=== PATIENT | male | born 1950 | race Caucasian/White ===

== ENCOUNTER → 2017-01-17 | Outpatient (CLI) | payer OTHER | LOC: MW.CHUR 09:06 | PROVIDERS: ATTEND Urology | DX: R97.20 Elevated prostate specific antigen [PSA] (principal); R35.0 Frequency of micturition | CPT/HCPCS: 36415; 84153 ==

== ENCOUNTER 2019-05-05 10:47 | Observation (INO) | payer OTHER, MEDICARE ==
[2019-05-05] MEDS ORDERED: Sodium Chloride 0.9% 10 ML Syringe FLUSH PRN (11:09)
[2019-05-05] MEDS ORDERED: Ketorolac 30 MG/ML SDV IVPUSH ONE (11:09)
[2019-05-05] MEDS ORDERED: Ondansetron 4 MG/2 ML SDV IVPUSH ONE (11:09)
[2019-05-05] MEDS ORDERED: Sodium Chloride 0.9% 2.5 ML Syringe FLUSH PRN (11:09)
[2019-05-05] MEDS ORDERED: Sodium Chloride 0.9% 1,000 ML IV ONE (11:09)
--- NOTE | 2019-05-05 11:14 | EDM.PDOC ---
ED HPI GENERAL MEDICAL PROBLEM - General Chief Complaint: Back Pain or Injury Stated Complaint: RIGHT LOW BACK PAIN Time Seen by Provider: 05/05/19 10:58 - History of Present Illness INITIAL COMMENTS - FREE TEXT/NARRATIVE: HISTORY AND PHYSICAL: History of present illness: The patient is a 68-year-old man with a history of hypertension and hypercholesterolemia who presents with complaints of right lower back pain that radiates to his right lower quadrant that started suddenly this morning. He says that he normal day yesterday without any systemic complaints and slept fine and woke up and got up and went to the bathroom without any hematuria dysuria and then went back to bed and the pain started. It is not in the midline back and is in the lower right back and radiates to the right lower abdomen. He has no testicular pain or swelling and the pain does not radiate down his leg or to the front of his thigh. He has no weakness numbness or tingling in his legs. He denies any recent trauma or new activities or strenuous lifting. He did not take anything or to coming here. He says that since the pain started he has had intractable nausea and vomiting and cannot keep any fluids down. He has not had diarrhea. He has no GI or history but does follow with Dr. Lugo for his PSA levels. He has never had any upper back pain in the flank area. He does not have any masses or swelling in his area that he is aware of or has noticed. The patient says that yesterday he was working outdoors and was very hot and he only drinks diet soda and no hydration fluids. He did tell nursing that his pain did improve for a short time after having urine output at home but then the pain returned so he came here for evaluation Please see below for more information that I have obtained in a subsequent review with patient Review of systems: As per history of present illness and below otherwise all systems reviewed and negative. Past medical history: As per history of present illness and as reviewed below otherwise noncontributory. Surgical history: As per history of present illness and as reviewed below otherwise noncontributory. Social history: No reported history of drug or alcohol abuse. Family history: As per history of present illness and as reviewed below otherwise noncontributory. Physical exam: General: Well-developed well-nourished man who is nontoxic and vital signs are noted by me. HEENT: Atraumatic, normocephalic, negative for conjunctival pallor or scleral icterus, mucous membranes moist, throat clear, neck supple, nontender, trachea midline. Lungs: Clear to auscultation, breath sounds equal bilaterally, chest nontender. Heart: S1S2, regular rate and rhythm no overt murmurs Abdomen: Soft, nondistended, nontender. Negative for masses or hepatosplenomegaly. Negative for costovertebral tenderness. On palpation I cannot elicit the pain exactly . There is just some overall discomfort with palpation of the right lower quadrant and there is no rebound or guarding. Pelvis: Stable nontender. Genitourinary: Deferred. Rectal: Deferred. Extremities: Atraumatic, negative for cords or calf pain. Neurovascular unremarkable. No pedal edema or leg asymmetry Neuro: Awake, alert, oriented. Cranial nerves II through XII unremarkable. Cerebellum unremarkable. Motor and sensory unremarkable throughout. Exam nonfocal. Tone is normal in the lower extremities and patellar reflexes are +2 over 4 bilaterally Back: There are no midline step-offs tenderness defects of the thoracic or lumbar spine no discrete CVA tenderness and on palpation of the right lumbar musculature I cannot reproduce the pain. Diagnostics: CBC CMP lipase UA urine culture CT scan of the abdomen and pelvis Therapeutics: IV fluids Zofran Toradol Flomax Protonix After patient gave a urine sample here he tells nursing that his pain is gone so he would like to hold off on the Toradol at this time. We will continue to monitor his symptoms and re-offer as appropriate. After the CT scan results were called to me by the tele-radiologist I did discuss with the patient his history over the last week or so with respect to GI complaints. He does, that he does drink a lot of diet Coke 5-6 a day but he does not drink any alcohol and he does not admit to any food intolerance. He does say that he has had "indigestion" for the last 1 week worse at nighttime and has been taking Tums before bed to try to prevent discomfort and heartburn while he is sleeping. He has never had an endoscopy or any peptic ulcer disease in the past. He is aware of the CT scan findings and of my concerns and will give him a dose of Flomax to assist with the passage of the small kidney stone on the right which is why he came into the ED but I need to discuss this case now with Dr. Kaminski with respect to the small foci of free air in the left upper quadrant. 1248: Case was discussed with Dr. Kaminski was aware of the case and will come and see the patient and agrees with the maintenance IV fluid with lactated Ringer's and a dose of Protonix. He said that we will treat this as peptic ulcer disease until proven otherwise and he does need to be watched in the hospital. He would like me to connect with Dr. Kevin to see if he wants to be the admitting doctor otherwise he will be the admitting doctor. 1251: Dr. Kevin does not feel like there is a medical problem here and it is more surgical so he says he will be available for consult as needed and would like Dr. Kaminski to be the admitting physician Impression: Small areas of incidental free air on CAT scan, I will peptic ulcer disease stable ;Right ureterolithiasis Definitive disposition and diagnosis as appropriate pending reevaluation and review of above. Right Lower Back Pain Score (Numeric/FACES): 8 - Related Data Allergies Allergy/AdvReac Type Severity Reaction Status Date / Time povidone-iodine Allergy Rash Verified 05/05/19 10:58 [From Betadine] soap [From Betadine] Allergy Rash Verified 05/05/19 10:58 Home Meds: Home Meds Lisinopril 20 mg PO BEDTIME 07/22/14 [History] Cholecalciferol (Vitamin D3) [Vitamin D3] 2,000 mg PO DAILY 05/05/19 [History] Finasteride [Propecia] 1 mg PO DAILY 05/05/19 [History] Meloxicam 7.5 mg PO BID 05/05/19 [History] Pravastatin [Pravachol] 20 mg PO DAILY 05/05/19 [History] predniSONE [Prednisone] 2.5 mg PO BID 05/05/19 [History] Past Medical History - Infectious Disease History Infectious Disease History: Reports: Chicken Pox, Measles, Mumps - Past Surgical History GI Surgical History: Reports: Hernia, Inguinal Social & Family History - Family History Family Medical History: Noncontributory - Tobacco Use Smoking Status *Q: Former Smoker Used Tobacco, but Quit: Yes Month/Year Tobacco Last Used: 2001 - Caffeine Use Caffeine Use: Reports: Soda - Recreational Drug Use Recreational Drug Use: No ED ROS GENERAL - Review of Systems Review Of Systems: ROS reveals no pertinent complaints other than HPI. ED EXAM, GENERAL - Physical Exam Exam: See Below (See dictation) Course - Vital Signs Last Recorded V/S: Last Vital Signs Temp 35.6 C 05/05/19 11:01 Pulse 67 05/05/19 11:01 Resp 18 05/05/19 11:01 BP 150/74 H 05/05/19 11:01 Pulse Ox 95 05/05/19 11:01 - Orders/Labs/Meds Orders: Active Orders 24 hr Category Date Time Status Abdomen Pelvis wo Cont [CT] Stat Exams 05/05/19 11:09 Taken CULTURE URINE [RM] Stat Lab 05/05/19 11:11 Received Lactated Ringers [Ringers, Lactated] 1,000 ml Med 05/05/19 12:45 Active IV ASDIRECTED Sodium Chloride 0.9% [Saline Flush] Med 05/05/19 11:09 Active 10 ml FLUSH ASDIRECTED PRN Sodium Chloride 0.9% [Saline Flush] Med 05/05/19 11:09 Active 2.5 ml FLUSH ASDIRECTED PRN Saline Lock Insert [OM.PC] Stat Oth 05/05/19 11:08 Ordered Medication Orders Lactated Ringer's (Ringers, Lactated) 1,000 mls @ 150 mls/hr IV ASDIRECTED PAVEL Last Admin: 05/05/19 12:47 Dose: 150 mls/hr Sodium Chloride (Saline Flush) 10 ml FLUSH ASDIRECTED PRN PRN Reason: Keep Vein Open Sodium Chloride (Saline Flush) 2.5 ml FLUSH ASDIRECTED PRN PRN Reason: Keep Vein Open Labs: Laboratory Tests 05/05/19 05/05/19 05/05/19 Range/Units 11:11 11:25 11:25 WBC 13.88 H (4.0-11.0) K/uL RBC 5.18 (4.50-5.90) M/uL Hgb 16.3 (13.0-17.0) g/dL Hct 48.7 (38.0-50.0) % MCV 94.0 (80.0-98.0) fL MCH 31.5 (27.0-32.0) pg MCHC 33.5 (31.0-37.0) g/dL RDW Std Deviation 47.8 (28.0-62.0) fl RDW Coeff of Darin 14 (11.0-15.0) % Plt Count 242 (150-400) K/uL MPV 9.90 (7.40-12.00) fL Neut % (Auto) 83.3 H (48.0-80.0) % Lymph % (Auto) 10.0 L (16.0-40.0) % [place] % (Auto) 6.2 (0.0-15.0) % Eos % (Auto) 0.2 (0.0-7.0) % Baso % (Auto) 0.3 (0.0-1.5) % Neut # (Auto) 11.6 H (1.4-5.7) K/uL Lymph # (Auto) 1.4 (0.6-2.4) K/uL [place] # (Auto) 0.9 H (0.0-0.8) K/uL Eos # (Auto) 0.0 (0.0-0.7) K/uL Baso # (Auto) 0.0 (0.0-0.1) K/uL Nucleated RBC % 0.0 /100WBC Nucleated RBCs # 0 K/uL Sodium 139 (136-148) mmol/L Potassium 3.9 (3.5-5.1) mmol/L Chloride 106 (98-107) mmol/L Carbon Dioxide 25.6 (21.0-32.0) mmol/L BUN 24 H (7.0-18.0) mg/dL Creatinine 1.2 (0.8-1.3) mg/dL Est Cr Clr Drug Dosing 59.73 mL/min Estimated GFR (MDRD) > 60.0 ml/min Glucose 175 H (74-106) mg/dL Calcium 8.9 (8.5-10.1) mg/dL Total Bilirubin 0.5 (0.2-1.0) mg/dL AST 21 (15-37) IU/L ALT 51 (14-63) IU/L Alkaline Phosphatase 48 (46-116) U/L Total Protein 6.8 (6.4-8.2) g/dL Albumin 3.6 (3.4-5.0) g/dL Globulin 3.2 (2.6-4.0) g/dL Albumin/Globulin Ratio 1.1 (0.9-1.6) Lipase 101 (73-393) U/L Urine Color YELLOW Urine Appearance SLT CLOUDY Urine pH 6.0 (5.0-8.0) Ur Specific [place] >= 1.030 (1.001-1.035) Urine Protein 30 H (NEGATIVE) mg/dL Urine Glucose (UA) NEGATIVE (NEGATIVE) mg/dL Urine Ketones NEGATIVE (NEGATIVE) mg/dL Urine Occult Blood LARGE H (NEGATIVE) Urine Nitrite NEGATIVE (NEGATIVE) Urine Bilirubin NEGATIVE (NEGATIVE) Urine Urobilinogen 0.2 (<2.0) EU/dL Ur Leukocyte Esterase NEGATIVE (NEGATIVE) Urine RBC 18-20 (0-2/HPF) Urine WBC 1-2 (0-5/HPF) Ur Epithelial Cells RARE (NONE-FEW) Urine Bacteria FEW (NEGATIVE) Urine Mucus MODERATE (NONE-MOD) Meds: Medications Generic Name Dose Route Start Last Admin Trade Name Sybil PRN Reason Stop Dose Admin Lactated Ringer's 1,000 mls @ 150 mls/hr 05/05/19 12:45 05/05/19 12:47 Ringers, Lactated IV 150 mls/hr ASDIRECTED PAVEL Administration Sodium Chloride 10 ml 05/05/19 11:09 Saline Flush FLUSH ASDIRECTED PRN Keep Vein Open Sodium Chloride 2.5 ml 05/05/19 11:09 Saline Flush FLUSH ASDIRECTED PRN Keep Vein Open Discontinued Medications Generic Name Dose Route Start Last Admin Trade Name Sybil PRN Reason Stop Dose Admin Sodium Chloride 1,000 mls @ 999 mls/hr 05/05/19 11:09 05/05/19 11:31 Normal Saline IV 05/05/19 12:09 999 mls/hr STAT ONE Administration Ketorolac Tromethamine 30 mg 05/05/19 11:09 Toradol IVPUSH 05/05/19 11:10 ONETIME ONE Ondansetron HCl 4 mg 05/05/19 11:09 Zofran IVPUSH 05/05/19 11:10 ONETIME ONE Pantoprazole Sodium 80 mg 05/05/19 12:48 Protonix Iv IVPUSH 05/05/19 12:49 .BOLUS ONE Tamsulosin HCl 0.4 mg 05/05/19 12:38 05/05/19 12:47 Flomax PO 05/05/19 12:39 0.4 mg ONETIME ONE Administration Departure - Departure Time of Disposition: 12:52 Disposition: Refer to Observation Condition: Good Clinical Impression: Pneumoperitoneum of unknown etiology, Ureterolithiasis - Discharge Information Referrals: PCP,None [Primary Care Provider] - Forms: ED Department Discharge - My Orders Last 24 Hours: My Active Orders 05/05/19 11:08 Saline Lock Insert [OM.PC] Stat 05/05/19 11:09 Abdomen Pelvis wo Cont [CT] Stat Sodium Chloride 0.9% [Saline Flush] 10 ml FLUSH ASDIRECTED PRN Sodium Chloride 0.9% [Saline Flush] 2.5 ml FLUSH ASDIRECTED PRN 05/05/19 11:11 CULTURE URINE [RM] Stat 05/05/19 12:45 Lactated Ringers [Ringers, Lactated] 1,000 ml IV ASDIRECTED - Assessment/Plan Last 24 Hours: My Active Orders 05/05/19 11:08 Saline Lock Insert [OM.PC] Stat 05/05/19 11:09 Abdomen Pelvis wo Cont [CT] Stat Sodium Chloride 0.9% [Saline Flush] 10 ml FLUSH ASDIRECTED PRN Sodium Chloride 0.9% [Saline Flush] 2.5 ml FLUSH ASDIRECTED PRN 05/05/19 11:11 CULTURE URINE [RM] Stat 05/05/19 12:45 Lactated Ringers [Ringers, Lactated] 1,000 ml IV ASDIRECTED
[2019-05-05 12:02] LABS: BLOOD UREA NITROGEN,BUN 24 mg/dL (7.0-18.0); CARBON DIOXIDE,CO2 25.6 mmol/L (21.0-32.0); CHLORIDE,CL 106 mmol/L (98-107); GLUCOSE RANDOM 175 mg/dL (74-106); LIPASE 101 U/L (73-393); POTASSIUM,K 3.9 mmol/L (3.5-5.1); SODIUM,NA 139 mmol/L (136-148)
[2019-05-05] MEDS ORDERED: Tamsulosin 0.4 MG Cap.ER PO ONE (12:38)
[2019-05-05] MEDS: Lactated Ringers 1,000 ML IV SCH ×4 (12:47→20:00)
[2019-05-05] MEDS ORDERED: Pantoprazole 40 MG Vial IVPUSH ONE (12:48)
--- NOTE | 2019-05-05 12:49 | CT ---
INDICATION: Right flank pain, right lower quadrant pain since this morning TECHNIQUE: CT abdomen and pelvis without contrast. COMPARISON: None available FINDINGS: The visualized portions of the lung bases are clear. There is moderate right hydronephrosis and hydroureter. There is a 0.3 cm stone within the proximal to mid right ureter, approximately 5.4 cm from the renal pelvis. Negative for left hydronephrosis. There is a punctate nonobstructing left renal stone. The bladder is minimally distended and unremarkable. There is a small left fat containing inguinal hernia. There are multiple enlarged gallstones within a nondistended gallbladder. Evaluation of the abdominal viscera is limited due to lack of IV contrast, however liver, spleen, pancreas and adrenal glands are unremarkable. There are no dilated loops of small bowel to suggest obstruction. There is scattered foci of intraperitoneal free air, predominantly within the left upper quadrant including foci along the greater curvature of the stomach. Additional small foci of free air is seen within the right upper quadrant. There is also larger focus of free air within the right lower quadrant, adjacent to the cecum. Scattered colonic diverticuli are seen within the rectosigmoid colon without adjacent inflammatory changes to suggest acute diverticulitis. The appendix is normal. There is scattered atherosclerotic calcification of the abdominal aorta and common iliacs bilaterally. Mild multilevel degenerative changes of the lower thoracic and lumbar spine. IMPRESSION: 1. Scattered foci of intraperitoneal free air in the upper abdomen and a larger focus in the right lower quadrant, adjacent to the cecum. No free fluid is visualized. Findings are concerning for bowel perforation in the absent of recent history of surgery. 2. Moderate right hydronephrosis with a 0.3 cm obstructing stone in the proximal mid right ureter. 3. Cholelithiasis. 4. Colonic diverticulosis without evidence of acute diverticulitis. Findings were discussed with Jen Ruvalcaba at 12:30 pm on 05/05/2019 Dictated by Berenice Iraheta MD @ 05/05/2019 12:47:16 PM Please note that all CT scans at this facility use dose modulation, iterative reconstruction, and/or weight-based dosing when appropriate to reduce radiation dose to as low as reasonably achievable. Dictated by: Berenice Iraheta MD @ 05/05/2019 12:48:06 (Electronically Signed)
[2019-05-05] MEDS ORDERED: Water For Injection, Sterile 20 ML ONE (12:51)
[2019-05-05] MEDS ORDERED: Morphine 10 MG/ML Syringe IVPUSH PRN (13:56)
[2019-05-05] MEDS ORDERED: Acetaminophen/HYDROcodone 325-5 MG Tab PO PRN (13:56)
[2019-05-05] MEDS ORDERED: Ondansetron 4 MG/2 ML SDV IVPUSH PRN (13:56)
[2019-05-05] MEDS ORDERED: Acetaminophen 325 MG Tab PO PRN (13:56)
--- NOTE | 2019-05-05 14:09 | PCM.HP ---
H&P History of Present Illness - General Date of Service: 05/05/19 Admit Problem/Dx: Admission Diagnosis/Problem Admission Diagnosis/Problem Abdominal pain, right ureteral stone, radiological small pneumoperitoneum Source of Information: Patient - History of Present Illness Initial Comments - Free Text/Narative: 68 y/o gentleman who presented to the ER today c/o right flank pain. Found to have leucocytosis with a WBC of 13K. CT scan showed a stone in the right mid- ureter. He was found to have several small foci of free air in the peritoneum although has no abdominal pain. Duration of Symptoms: Reports: Hour(s):, Intermittent Location: Reports: Abdomen Associated Symptoms: Reports: No Other Symptoms Right Lower Back Pain Score (Numeric/FACES): 8 - Related Data Allergies/Adverse Reactions: Allergies Allergy/AdvReac Type Severity Reaction Status Date / Time povidone-iodine Allergy Rash Verified 05/05/19 10:58 [From Betadine] soap [From Betadine] Allergy Rash Verified 05/05/19 10:58 Home Medications: Home Meds Lisinopril 20 mg PO BEDTIME 07/22/14 [History] Cholecalciferol (Vitamin D3) [Vitamin D3] 2,000 mg PO DAILY 05/05/19 [History] Finasteride [Propecia] 1 mg PO DAILY 05/05/19 [History] Meloxicam 7.5 mg PO BID 05/05/19 [History] Pravastatin [Pravachol] 20 mg PO DAILY 05/05/19 [History] predniSONE [Prednisone] 2.5 mg PO BID 05/05/19 [History] Past Medical History Musculoskeletal History: Reports: Other (See Below) (polymyositis) - Infectious Disease History Infectious Disease History: Reports: Chicken Pox, Measles, Mumps - Past Surgical History GI Surgical History: Reports: Hernia, Inguinal Social & Family History - Family History Family Medical History: Noncontributory - Tobacco Use Smoking Status *Q: Former Smoker Used Tobacco, but Quit: Yes Month/Year Tobacco Last Used: 2001 - Caffeine Use Caffeine Use: Reports: Soda - Recreational Drug Use Recreational Drug Use: No H&P Review of Systems - Review of Systems: Review Of Systems: See Below General: Denies: Fever, Chills, Malaise Cardiovascular: Denies: Chest Pain Gastrointestinal: Denies: Abdominal Pain, Constipation, Diarrhea, Decreased Appetite Genitourinary: Reports: Flank Pain (right). Denies: Dysuria, Frequency, Burning , Pain, Urgency Musculoskeletal: Reports: No Symptoms Skin: Denies: Cyanosis, Jaundice, Mottled Psychiatric: Denies: Confusion, Depression, Mood Lability, Anxiety Neurological: Reports: No Symptoms Hematologic/Lymphatic: Reports: No Symptoms Immunologic: Reports: Other (polymyositis) Exam - Exam Exam: See Below - Vital Signs Vital Signs: Last Vital Signs Temp 96.0 F 05/05/19 11:01 Pulse 67 05/05/19 11:01 Resp 18 05/05/19 11:01 BP 150/74 H 05/05/19 11:01 Pulse Ox 95 05/05/19 11:01 Weight: 188 lb 14.978 oz - Exam General: Alert, Oriented, Cooperative, Mild Distress HEENT: Conjunctiva Clear, Pupils Equal, Pupils Reactive. No: Scleral Icterus Neck: Supple Lungs: Clear to Auscultation Cardiovascular: Regular Rate, Regular Rhythm GI/Abdominal Exam: Normal Bowel Sounds, Soft, Non-Tender, No Distention. No: Guarding, Rigid, Rebound (Male) Exam: No Hernia Rectal (Males) Exam: Deferred Back Exam: Normal Inspection, Full Range of Motion, NT Extremities: Normal Inspection, Normal Range of Motion, Non-Tender, No Pedal Edema, Normal Capillary Refill Peripheral Pulses: 4+: Posterior Tibial (L), Posterior Tibial (R), Dorsalis Pedis (L), Dorsalis Pedis (R) Skin: Warm, Dry, Intact Neurological: Cranial Nerves Intact, Reflexes Equal Bilateral Psychiatric: Alert, Normal Affect, Normal Mood - Patient Data Lab Results Last 24 hrs: Laboratory Results - last 24 hr 05/05/19 05/05/19 05/05/19 Range/Units 11:11 11:25 11:25 WBC 13.88 H (4.0-11.0) K/uL RBC 5.18 (4.50-5.90) M/uL Hgb 16.3 (13.0-17.0) g/dL Hct 48.7 (38.0-50.0) % MCV 94.0 (80.0-98.0) fL MCH 31.5 (27.0-32.0) pg MCHC 33.5 (31.0-37.0) g/dL RDW Std Deviation 47.8 (28.0-62.0) fl RDW Coeff of Darin 14 (11.0-15.0) % Plt Count 242 (150-400) K/uL MPV 9.90 (7.40-12.00) fL Neut % (Auto) 83.3 H (48.0-80.0) % Lymph % (Auto) 10.0 L (16.0-40.0) % [place] % (Auto) 6.2 (0.0-15.0) % Eos % (Auto) 0.2 (0.0-7.0) % Baso % (Auto) 0.3 (0.0-1.5) % Neut # (Auto) 11.6 H (1.4-5.7) K/uL Lymph # (Auto) 1.4 (0.6-2.4) K/uL [place] # (Auto) 0.9 H (0.0-0.8) K/uL Eos # (Auto) 0.0 (0.0-0.7) K/uL Baso # (Auto) 0.0 (0.0-0.1) K/uL Nucleated RBC % 0.0 /100WBC Nucleated RBCs # 0 K/uL Sodium 139 (136-148) mmol/L Potassium 3.9 (3.5-5.1) mmol/L Chloride 106 (98-107) mmol/L Carbon Dioxide 25.6 (21.0-32.0) mmol/L BUN 24 H (7.0-18.0) mg/dL Creatinine 1.2 (0.8-1.3) mg/dL Est Cr Clr Drug Dosing 59.73 mL/min Estimated GFR (MDRD) > 60.0 ml/min Glucose 175 H (74-106) mg/dL Calcium 8.9 (8.5-10.1) mg/dL Total Bilirubin 0.5 (0.2-1.0) mg/dL AST 21 (15-37) IU/L ALT 51 (14-63) IU/L Alkaline Phosphatase 48 (46-116) U/L Total Protein 6.8 (6.4-8.2) g/dL Albumin 3.6 (3.4-5.0) g/dL Globulin 3.2 (2.6-4.0) g/dL Albumin/Globulin Ratio 1.1 (0.9-1.6) Lipase 101 (73-393) U/L Urine Color YELLOW Urine Appearance SLT CLOUDY Urine pH 6.0 (5.0-8.0) Ur Specific [place] >= 1.030 (1.001-1.035) Urine Protein 30 H (NEGATIVE) mg/dL Urine Glucose (UA) NEGATIVE (NEGATIVE) mg/dL Urine Ketones NEGATIVE (NEGATIVE) mg/dL Urine Occult Blood LARGE H (NEGATIVE) Urine Nitrite NEGATIVE (NEGATIVE) Urine Bilirubin NEGATIVE (NEGATIVE) Urine Urobilinogen 0.2 (<2.0) EU/dL Ur Leukocyte Esterase NEGATIVE (NEGATIVE) Urine RBC 18-20 (0-2/HPF) Urine WBC 1-2 (0-5/HPF) Ur Epithelial Cells RARE (NONE-FEW) Urine Bacteria FEW (NEGATIVE) Urine Mucus MODERATE (NONE-MOD) Result Diagrams: 05/05/19 11:25 05/05/19 11:25 - Problem List (1) Pneumoperitoneum of unknown etiology SNOMED Code(s): 25094004 ICD Code: K66.8 - OTHER SPECIFIED DISORDERS OF PERITONEUM Status: Acute Current Visit: Yes (2) Ureterolithiasis SNOMED Code(s): 01356320 ICD Code: N20.1 - CALCULUS OF URETER Status: Acute Current Visit: Yes Problem List Initiated/Reviewed/Updated: Yes Orders Last 24hrs: Active Orders 24 hr Category Date Time Status Patient Status [ADT] Routine ADT 05/05/19 13:55 Ordered Intake and Output [RC] QSHIFT Care 05/05/19 13:54 Ordered Strain Urine [RC] ASDIRECTED Care 05/05/19 14:00 Ordered Up ad Poppy [RC] ASDIRECTED Care 05/05/19 13:54 Ordered Vital Signs [RC] PER UNIT ROUTINE Care 05/05/19 13:54 Ordered Regular Diet [DIET] Diet 05/05/19 Dinner Ordered BMP [BASIC METABOLIC PANEL,BMP] [CHEM] AM Lab 05/06/19 05:11 Ordered CBC WITH AUTO DIFF [HEME] AM Lab 05/06/19 05:11 Ordered CULTURE URINE [RM] Stat Lab 05/05/19 11:11 Received Acetaminophen [Tylenol] Med 05/05/19 13:56 Ordered 325 mg PO Q4H PRN Acetaminophen/HYDROcodone [[place] 325-5 MG] Med 05/05/19 13:56 Ordered 1 - 2 tab PO Q4H PRN Lactated Ringers [Ringers, Lactated] 1,000 ml Med 05/05/19 12:45 Active IV ASDIRECTED Lactated Ringers [Ringers, Lactated] 1,000 ml Med 05/05/19 14:00 Ordered IV ASDIRECTED Morphine Med 05/05/19 13:56 Ordered See Dose Instructions IVPUSH Q1H PRN Ondansetron [Zofran] Med 05/05/19 13:56 Ordered 4 mg IVPUSH Q6H PRN Sodium Chloride 0.9% [Saline Flush] Med 05/05/19 11:09 Active 10 ml FLUSH ASDIRECTED PRN Sodium Chloride 0.9% [Saline Flush] Med 05/05/19 11:09 Active 2.5 ml FLUSH ASDIRECTED PRN cefOXitin [Mefoxin in Dextrose,Iso-Osm 1 GM/50 ML] 1 gm Med 05/05/19 14:00 Ordered Premix Bag 1 bag IV Q8H Saline Lock Insert [OM.PC] Stat Oth 05/05/19 11:08 Ordered Medication Orders Acetaminophen (Tylenol) 325 mg PO Q4H PRN PRN Reason: Fever Greater Than 101 Hydrocodone Bitart/Acetaminophen ([place] 325-5 Mg) 1 - 2 tab PO Q4H PRN PRN Reason: Pain (moderate 4-6) Lactated Ringer's (Ringers, Lactated) 1,000 mls @ 150 mls/hr IV ASDIRECTED [facility] Last Admin: 05/05/19 12:47 Dose: 150 mls/hr Lactated Ringer's (Ringers, Lactated) 1,000 mls @ 150 mls/hr IV ASDIRECTED [facility] Cefoxitin Sodium 1 gm/ Premix 50 mls @ 100 mls/hr IV Q8H [facility] Stop: 05/06/19 14:29 Morphine Sulfate (Morphine) 0 mg IVPUSH Q1H PRN PRN Reason: Pain (severe 7-10) Ondansetron HCl (Zofran) 4 mg IVPUSH Q6H PRN PRN Reason: Nausea/Vomiting Sodium Chloride (Saline Flush) 10 ml FLUSH ASDIRECTED PRN PRN Reason: Keep Vein Open Sodium Chloride (Saline Flush) 2.5 ml FLUSH ASDIRECTED PRN PRN Reason: Keep Vein Open Assessment/Plan Comment:: Patient will be admitted for observation secondary to radiologic pneumoperitoneum. Will start parenteral antibiotics during admission. Will start po diet as well and continue IV fluids. Will strain urine and keep him on flomax. Repeat labs in am.
[2019-05-05] MEDS: cefOXitin 1 GM in Premix Bag 1 BAG IV SCH ×2 (15:38→22:02)
[2019-05-06] MEDS: Lactated Ringers 1,000 ML IV SCH ×2 (03:10→09:08)
[2019-05-06] MEDS: cefOXitin 1 GM in Premix Bag 1 BAG IV SCH (05:19)
[2019-05-06 06:33] LABS: CARBON DIOXIDE,CO2 25.8 mmol/L (21.0-32.0); POTASSIUM,K 4.6 mmol/L (3.5-5.1)
[2019-05-06 08:13] VITALS: BP 128/60; PULSE 60
--- NOTE | 2019-05-06 09:36 | PCM.PN ---
- General Info Date of Service: 05/06/19 Admission Dx/Problem (Free Text): Pneumoperitoneum. Right ureteral stone. Functional Status: Reports: Pain Controlled, Tolerating Diet, Ambulating, Urinating - Review of Systems General: Denies: Fever, Weakness, Fatigue HEENT: Reports: No Symptoms Pulmonary: Reports: No Symptoms Cardiovascular: Denies: Chest Pain Gastrointestinal: Reports: Flatus. Denies: Abdominal Pain, Diarrhea, Nausea, Vomiting Genitourinary: Denies: Dysuria, Frequency, Burning, Pain, Urgency, Hematuria Musculoskeletal: Reports: No Symptoms Skin: Reports: No Symptoms Neurological: Reports: No Symptoms Psychiatric: Reports: No Symptoms - Patient Data Vitals - Most Recent: Last Vital Signs Temp 97.3 F 05/06/19 08:12 Pulse 60 05/06/19 08:12 Resp 16 05/06/19 08:12 BP 128/60 05/06/19 08:12 Pulse Ox 94 L 05/06/19 08:12 Weight - Most Recent: 189 lb 7 oz I&O - Last 24 Hours: Intake & Output 05/05/19 05/06/19 05/06/19 19:59 03:59 11:59 Intake Total 250 3034 1000 Output Total 400 1300 Balance -150 1734 1000 Lab Results Last 24 Hours: Laboratory Results - last 24 hr 05/05/19 05/05/19 05/05/19 Range/Units 11:11 11:25 11:25 WBC 13.88 H (4.0-11.0) K/uL RBC 5.18 (4.50-5.90) M/uL Hgb 16.3 (13.0-17.0) g/dL Hct 48.7 (38.0-50.0) % MCV 94.0 (80.0-98.0) fL MCH 31.5 (27.0-32.0) pg MCHC 33.5 (31.0-37.0) g/dL RDW Std Deviation 47.8 (28.0-62.0) fl RDW Coeff of Darin 14 (11.0-15.0) % Plt Count 242 (150-400) K/uL MPV 9.90 (7.40-12.00) fL Neut % (Auto) 83.3 H (48.0-80.0) % Lymph % (Auto) 10.0 L (16.0-40.0) % [place] % (Auto) 6.2 (0.0-15.0) % Eos % (Auto) 0.2 (0.0-7.0) % Baso % (Auto) 0.3 (0.0-1.5) % Neut # (Auto) 11.6 H (1.4-5.7) K/uL Lymph # (Auto) 1.4 (0.6-2.4) K/uL [place] # (Auto) 0.9 H (0.0-0.8) K/uL Eos # (Auto) 0.0 (0.0-0.7) K/uL Baso # (Auto) 0.0 (0.0-0.1) K/uL Nucleated RBC % 0.0 /100WBC Nucleated RBCs # 0 K/uL Sodium 139 (136-148) mmol/L Potassium 3.9 (3.5-5.1) mmol/L Chloride 106 (98-107) mmol/L Carbon Dioxide 25.6 (21.0-32.0) mmol/L BUN 24 H (7.0-18.0) mg/dL Creatinine 1.2 (0.8-1.3) mg/dL Est Cr Clr Drug Dosing 59.73 mL/min Estimated GFR (MDRD) > 60.0 ml/min Glucose 175 H (74-106) mg/dL Calcium 8.9 (8.5-10.1) mg/dL Total Bilirubin 0.5 (0.2-1.0) mg/dL AST 21 (15-37) IU/L ALT 51 (14-63) IU/L Alkaline Phosphatase 48 (46-116) U/L Total Protein 6.8 (6.4-8.2) g/dL Albumin 3.6 (3.4-5.0) g/dL Globulin 3.2 (2.6-4.0) g/dL Albumin/Globulin Ratio 1.1 (0.9-1.6) Lipase 101 (73-393) U/L Urine Color YELLOW Urine Appearance SLT CLOUDY Urine pH 6.0 (5.0-8.0) Ur Specific Somers >= 1.030 (1.001-1.035) Urine Protein 30 H (NEGATIVE) mg/dL Urine Glucose (UA) NEGATIVE (NEGATIVE) mg/dL Urine Ketones NEGATIVE (NEGATIVE) mg/dL Urine Occult Blood LARGE H (NEGATIVE) Urine Nitrite NEGATIVE (NEGATIVE) Urine Bilirubin NEGATIVE (NEGATIVE) Urine Urobilinogen 0.2 (<2.0) EU/dL Ur Leukocyte Esterase NEGATIVE (NEGATIVE) Urine RBC 18-20 (0-2/HPF) Urine WBC 1-2 (0-5/HPF) Ur Epithelial Cells RARE (NONE-FEW) Urine Bacteria FEW (NEGATIVE) Urine Mucus MODERATE (NONE-MOD) 05/06/19 05/06/19 Range/Units 06:01 06:01 WBC 8.02 (4.0-11.0) K/uL RBC 4.74 (4.50-5.90) M/uL Hgb 14.4 (13.0-17.0) g/dL Hct 45.1 (38.0-50.0) % MCV 95.1 (80.0-98.0) fL MCH 30.4 (27.0-32.0) pg MCHC 31.9 (31.0-37.0) g/dL RDW Std Deviation 49.0 (28.0-62.0) fl RDW Coeff of Darin 14 (11.0-15.0) % Plt Count 212 (150-400) K/uL MPV 9.50 (7.40-12.00) fL Neut % (Auto) 64.2 (48.0-80.0) % Lymph % (Auto) 24.3 (16.0-40.0) % [place] % (Auto) 8.4 (0.0-15.0) % Eos % (Auto) 2.2 (0.0-7.0) % Baso % (Auto) 0.9 (0.0-1.5) % Neut # (Auto) 5.2 (1.4-5.7) K/uL Lymph # (Auto) 2.0 (0.6-2.4) K/uL [place] # (Auto) 0.7 (0.0-0.8) K/uL Eos # (Auto) 0.2 (0.0-0.7) K/uL Baso # (Auto) 0.1 (0.0-0.1) K/uL Nucleated RBC % 0.0 /100WBC Nucleated RBCs # 0 K/uL Sodium 143 (136-148) mmol/L Potassium 4.6 (3.5-5.1) mmol/L Chloride 110 H (98-107) mmol/L Carbon Dioxide 25.8 (21.0-32.0) mmol/L BUN 21 H (7.0-18.0) mg/dL Creatinine 1.3 (0.8-1.3) mg/dL Est Cr Clr Drug Dosing 55.14 mL/min Estimated GFR (MDRD) 55.1 ml/min Glucose 102 (74-106) mg/dL Calcium 8.6 (8.5-10.1) mg/dL Total Bilirubin (0.2-1.0) mg/dL AST (15-37) IU/L ALT (14-63) IU/L Alkaline Phosphatase (46-116) U/L Total Protein (6.4-8.2) g/dL Albumin (3.4-5.0) g/dL Globulin (2.6-4.0) g/dL Albumin/Globulin Ratio (0.9-1.6) Lipase (73-393) U/L Urine Color Urine Appearance Urine pH (5.0-8.0) Ur Specific Somers (1.001-1.035) Urine Protein (NEGATIVE) mg/dL Urine Glucose (UA) (NEGATIVE) mg/dL Urine Ketones (NEGATIVE) mg/dL Urine Occult Blood (NEGATIVE) Urine Nitrite (NEGATIVE) Urine Bilirubin (NEGATIVE) Urine Urobilinogen (<2.0) EU/dL Ur Leukocyte Esterase (NEGATIVE) Urine RBC (0-2/HPF) Urine WBC (0-5/HPF) Ur Epithelial Cells (NONE-FEW) Urine Bacteria (NEGATIVE) Urine Mucus (NONE-MOD) Med Orders - Current: Current Medications Acetaminophen (Tylenol) 325 mg PO Q4H PRN PRN Reason: Fever Greater Than 101 Last Admin: 05/05/19 22:01 Dose: 325 mg Hydrocodone Bitart/Acetaminophen ([place] 325-5 Mg) 1 - 2 tab PO Q4H PRN PRN Reason: Pain (moderate 4-6) Lactated Ringer's (Ringers, Lactated) 1,000 mls @ 150 mls/hr IV ASDIRECTED PAVEL Last Admin: 05/06/19 09:08 Dose: 150 mls/hr Lactated Ringer's (Ringers, Lactated) 1,000 mls @ 150 mls/hr IV Q7H [facility] Last Admin: 05/06/19 03:10 Dose: 150 mls/hr Cefoxitin Sodium 1 gm/ Premix 50 mls @ 100 mls/hr IV Q8H [facility] Stop: 05/06/19 14:29 Last Admin: 05/06/19 05:19 Dose: 100 mls/hr Morphine Sulfate (Morphine) 0 mg IVPUSH Q1H PRN PRN Reason: Pain (severe 7-10) Ondansetron HCl (Zofran) 4 mg IVPUSH Q6H PRN PRN Reason: Nausea/Vomiting Sodium Chloride (Saline Flush) 10 ml FLUSH ASDIRECTED PRN PRN Reason: Keep Vein Open Sodium Chloride (Saline Flush) 2.5 ml FLUSH ASDIRECTED PRN PRN Reason: Keep Vein Open Discontinued Medications Sodium Chloride (Normal Saline) 1,000 mls @ 999 mls/hr IV STAT ONE Stop: 05/05/19 12:09 Last Admin: 05/05/19 11:31 Dose: 999 mls/hr Sterile Water (Sterile Water For Injection) Confirm Administered Dose 20 mls @ as directed .ROUTE .STK-MED ONE Stop: 05/05/19 12:52 Last Admin: 05/05/19 20:00 Dose: Not Given Ketorolac Tromethamine (Toradol) 30 mg IVPUSH ONETIME ONE Stop: 05/05/19 11:10 Last Admin: 05/05/19 12:50 Dose: Not Given Ondansetron HCl (Zofran) 4 mg IVPUSH ONETIME ONE Stop: 05/05/19 11:10 Last Admin: 05/05/19 12:50 Dose: Not Given Pantoprazole Sodium (Protonix Iv) 80 mg IVPUSH .BOLUS ONE Stop: 05/05/19 12:49 Last Admin: 05/05/19 12:55 Dose: 80 mg Tamsulosin HCl (Flomax) 0.4 mg PO ONETIME ONE Stop: 05/05/19 12:39 Last Admin: 05/05/19 12:47 Dose: 0.4 mg - Exam General: Alert, Oriented, Cooperative, No Acute Distress HEENT: Pupils Equal, Pupils Reactive. No: Scleral Icterus Neck: Supple Lungs: Clear to Auscultation, Normal Respiratory Effort Cardiovascular: Regular Rate, Regular Rhythm GI/Abdominal Exam: Normal Bowel Sounds, Soft, Non-Tender, No Distention. No: Guarding, Rigid, Rebound (Male) Exam: No Hernia Back Exam: Normal Inspection, Full Range of Motion. No: CVA Tenderness (R) Peripheral Pulses: 4+: Posterior Tibial (L), Posterior Tibial (R), Dorsalis Pedis (L), Dorsalis Pedis (R) Skin: Dry, Intact Neurological: No New Focal Deficit Psy/Mental Status: Alert, Normal Affect, Normal Mood - Problem List & Annotations (1) Pneumoperitoneum of unknown etiology SNOMED Code(s): 55550326 Code(s): K66.8 - OTHER SPECIFIED DISORDERS OF PERITONEUM Status: Acute Current Visit: Yes (2) Ureterolithiasis SNOMED Code(s): 40944649 Code(s): N20.1 - CALCULUS OF URETER Status: Acute Current Visit: Yes - Problem List Review Problem List Initiated/Reviewed/Updated: Yes - My Orders Last 24 Hours: My Active Orders 05/05/19 13:54 Intake and Output [RC] QSHIFT Up ad Poppy [RC] ASDIRECTED Vital Signs [RC] PER UNIT ROUTINE 05/05/19 13:55 Patient Status [ADT] Routine 05/05/19 13:56 Acetaminophen [Tylenol] 325 mg PO Q4H PRN Acetaminophen/HYDROcodone [[place] 325-5 MG] 1 - 2 tab PO Q4H PRN Morphine See Dose Instructions IVPUSH Q1H PRN Ondansetron [Zofran] 4 mg IVPUSH Q6H PRN 05/05/19 14:00 Strain Urine [RC] ASDIRECTED Lactated Ringers [Ringers, Lactated] 1,000 ml IV Q7H cefOXitin [Mefoxin in Dextrose,Iso-Osm 1 GM/50 ML] 1 gm Premix Bag 1 bag IV Q8H 05/05/19 Dinner Regular Diet [DIET] - Assessment Assessment:: Patient is doing very well. No abdominal pain. WBC has returned to normal with no left shift. Unsure of etiology of pneumoperitoneum but patient has no acute abdominal findings. - Plan Plan:: Patient will be discharged today with followup with me for cholelithiasis and Dr. Lugo for ureteral calculus. Flomax for 10 days and strain urine.
== END 2019-05-06 10:30 | disposition home or self-care (01) ==
LOC: MW.ED 10:47 → MW.MS 13:52
PROVIDERS: ADMIT Surgery; ATTEND Surgery
DX: K66.8 Other specified disorders of peritoneum (principal); N20.1 Calculus of ureter; I10 Essential (primary) hypertension; E78.00 Pure hypercholesterolemia, unspecified; Z88.3 Allergy status to other anti-infective agents; Z91.048 Other nonmedicinal substance allergy status; Z87.891 Personal history of nicotine dependence; Z79.52 Long term (current) use of systemic steroids; Z79.1 Long term (current) use of non-steroidal anti-inflammatories (NSAID); Z79.899 Other long term (current) drug therapy
CPT/HCPCS: 36415; 74176; 80048; 80053; 81001; 83690; 85025; 87086; 96361; 96374; 99284; A9270; C9113; J0694; J7040; J7120; 96365; 96375; 96376; G0378

== ENCOUNTER 2020-01-01 12:11 | Observation (INO) | payer BC, MEDICARE ==
[2020-01-01] MEDS ORDERED: Ondansetron 4 MG/2 ML SDV IVPUSH PRN (13:21)
[2020-01-01] MEDS ORDERED: Sodium Chloride 0.9% 2.5 ML Syringe FLUSH PRN (13:21)
[2020-01-01] MEDS ORDERED: Acetaminophen 325 MG Tab PO PRN (13:21)
--- NOTE | 2020-01-01 14:17 | PCM.HP.2 ---
H&P History of Present Illness - General Date of Service: 01/01/20 Admit Problem/Dx: GI bleed Source of Information: Patient History Limitations: Reports: No Limitations - History of Present Illness Initial Comments - Free Text/Narative: This 69 year old male with pmh of CAD with recent stenting in June 2019 on Effient and ASA, GERD, COPD, HTN, HLD, autoimmune polymyositis presented to the clinic today with concerns of shortness of breath and chest pressure when ambulating. Hgb was checked 12/26 and noted to be 9.6 and today recheck was 6.8. He had called his collet driller in [place] who recommended stopping Effient and continuing with ASA, and to stop ASA 5 days prior to EGD when he is set up to do this. He reports no black or blood BMs. Reports stools are brown in color. No nausea or vomiting, but reports gastritis and heartburn. Sometimes food helps with pain and sometimes it makes it worse. He takes Omeprazole at home nightly, which has helped. He previously was on Meloxicam and Prednisone. Continues on 2.5 mg of Prednisone BID. He also reports Carafate in the past, which caused his pain so this was stopped. In the clinic h/h noted to be 6.8/23.7. Iron 15, Na 144, K+ 4.0, BUN 29 and Cr 1.2. Admission for transfusion recommended. Dr Kaminski was notified of patient , recommended infusion, but would hold of on EGD/colonoscopy currently. - Related Data Allergies/Adverse Reactions: Allergies Allergy/AdvReac Type Severity Reaction Status Date / Time povidone-iodine Allergy Rash Verified 01/01/20 13:29 [From Betadine] soap [From Betadine] Allergy Rash Verified 01/01/20 13:29 Home Medications: Home Meds Cholecalciferol (Vitamin D3) [Vitamin D3] 2,000 mg PO DAILY 05/05/19 [History] predniSONE [Prednisone] 2.5 mg PO BID 05/05/19 [History] Alendronate Sodium 1 tab PO WEEKLY 01/01/20 [History] Aspirin [Adult Low Dose Aspirin EC] 81 mg PO 01/01/20 [History] Furosemide 40 mg PO DAILY 01/01/20 [History] Glycopyrrolate/Formoterol Fum [Bevespi Aerosphere Inhaler] 2 inh IH BID [History] Multivitamin [Multivitamins] 1 tab PO DAILY 01/01/20 [History] Omeprazole 20 mg PO BEDTIME 01/01/20 [History] Potassium Chloride [Klor-Con M20] 20 meq PO DAILY 01/01/20 [History] Tiotropium [Spiriva Handihaler] 1 inh IH DAILY 01/01/20 [History] atorvaSTATin [Lipitor] 20 mg PO BEDTIME 01/01/20 [History] lisinopriL [Lisinopril] 20 mg PO BEDTIME 01/01/20 [History] Past Medical History Cardiovascular History: Reports: Hypertension, SOB on Exertion, Stents ( June 2019). Denies: Heart Failure Respiratory History: Reports: None Genitourinary History: Reports: Renal Calculus Musculoskeletal History: Reports: Other (See Below) (auotimmune polymyositis) Neurological History: Denies: CVA, TIA Psychiatric History: Reports: None Endocrine/Metabolic History: Reports: None, Other (See Below). Denies: Diabetes , Type II Hematologic History: Reports: Iron Deficiency - Infectious Disease History Infectious Disease History: Reports: Chicken Pox, Measles, Mumps - Past Surgical History GI Surgical History: Reports: Hernia, Inguinal Social & Family History - Family History Family Medical History: Noncontributory - Tobacco Use Smoking Status *Q: Former Smoker Used Tobacco, but Quit: No - Caffeine Use Caffeine Use: Reports: None - Alcohol Use Alcohol Use History: No - Recreational Drug Use Recreational Drug Use: No H&P Review of Systems - Review of Systems: Review Of Systems: See Below General: Reports: Malaise, Fatigue. Denies: Fever, Chills HEENT: Reports: No Symptoms. Denies: Headaches, Visual Changes Pulmonary: Reports: Shortness of Breath Cardiovascular: Reports: Chest Pain (pressure with ambulation), Dyspnea on Exertion Gastrointestinal: Reports: No Symptoms. Denies: Abdominal Pain, Black Stool, Bloody Stool, Hematemesis, Hematochezia, Nausea, Vomiting Genitourinary: Reports: No Symptoms. Denies: Dysuria, Frequency, Burning Musculoskeletal: Reports: No Symptoms. Denies: Neck Pain, Shoulder Pain, Arm Pain Skin: Reports: No Symptoms Psychiatric: Reports: No Symptoms Neurological: Reports: No Symptoms Hematologic/Lymphatic: Reports: No Symptoms Exam - Exam Exam: See Below - Vital Signs Weight: 78.154 kg - Exam General: Alert, Oriented, Cooperative Neck: Supple, Trachea Midline Lungs: Clear to Auscultation, Normal Respiratory Effort Cardiovascular: Regular Rate, Regular Rhythm, Normal S1, Normal S2. No: Systolic Murmur GI/Abdominal Exam: Normal Bowel Sounds, Soft, Non-Tender Rectal (Males) Exam: Normal Exam, Normal Rectal Tone, Heme + Stool. No: Black Stool Back Exam: Normal Inspection, Full Range of Motion Extremities: Normal Inspection, Normal Range of Motion, Pedal Edema (+1 pitting edema BLE) Neuro Extensive - Mental Status: Alert, Oriented x3 Neuro Extensive - Motor, Sensory, Reflexes: CN II-XII Intact Psychiatric: Alert, Normal Affect, Normal Mood - Problem List (1) GI bleed SNOMED Code(s): 29094149 ICD Code: K92.2 - GASTROINTESTINAL HEMORRHAGE, UNSPECIFIED Status: Acute Current Visit: Yes (2) Symptomatic anemia SNOMED Code(s): 645718978 ICD Code: D64.9 - ANEMIA, UNSPECIFIED Status: Acute Current Visit: Yes (3) HTN (hypertension) SNOMED Code(s): 74443385 ICD Code: I10 - ESSENTIAL (PRIMARY) HYPERTENSION Status: Chronic Current Visit: Yes (4) HLD (hyperlipidemia) SNOMED Code(s): 61881165 ICD Code: E78.5 - HYPERLIPIDEMIA, UNSPECIFIED Status: Chronic Current Visit: Yes (5) CAD (coronary artery disease) SNOMED Code(s): 34539701 ICD Code: I25.10 - ATHSCL HEART DISEASE OF [place] CORONARY ARTERY W/O ANG PCTRS Status: Chronic Current Visit: Yes (6) History of coronary artery stent placement SNOMED Code(s): 886664606, 077849693 ICD Code: Z95.5 - PRESENCE OF CORONARY ANGIOPLASTY IMPLANT AND GRAFT Status : Chronic Current Visit: Yes Problem List Initiated/Reviewed/Updated: Yes Orders Last 24hrs: Active Orders 24 hr Category Date Time Status Antiembolic Devices [RC] PER UNIT ROUTINE Care 01/01/20 13:22 Active Intake and Output [RC] QSHIFT Care 01/01/20 13:22 Active Oxygen Therapy [RC] PRN Care 01/01/20 13:22 Active Up With Assistance [RC] ASDIRECTED Care 01/01/20 13:21 Active VTE/DVT Education [RC] PER UNIT ROUTINE Care 01/01/20 13:22 Active Vital Signs [RC] Q4H Care 01/01/20 13:22 Active Clear Liquid Diet [DIET] Diet 01/01/20 Lunch Active BASIC METABOLIC PANEL,BMP [CHEM] AM Lab 01/02/20 05:11 Ordered CBC WITH AUTO DIFF [HEME] AM Lab 01/02/20 05:11 Ordered RED BLOOD CELLS LP [BBK] Routine Lab 01/01/20 13:54 Received TYPE AND SCREEN [BBK] Routine Lab 01/01/20 13:54 Received Acetaminophen [Tylenol] Med 01/01/20 13:21 Active 650 mg PO Q4H PRN Ondansetron [Zofran] Med 01/01/20 13:21 Active 4 mg IVPUSH Q4H PRN Sodium Chloride 0.9% [Saline Flush] Med 01/01/20 13:21 Active 2.5 ml FLUSH ASDIRECTED PRN Saline Lock Insert [OM.PC] Routine Oth 01/01/20 13:21 Ordered Sequential Compression Device [OM.PC] Per Unit Routine Oth 01/01/20 13:22 Ordered Transfuse Red Blood Cells [COMM] Routine Oth 01/01/20 13:20 Ordered Medication Orders Acetaminophen (Tylenol) 650 mg PO Q4H PRN PRN Reason: Pain (Mild 1-3)/fever Ondansetron HCl (Zofran) 4 mg IVPUSH Q4H PRN PRN Reason: Nausea Sodium Chloride (Saline Flush) 2.5 ml FLUSH ASDIRECTED PRN PRN Reason: Keep Vein Open Assessment/Plan Comment:: This 69 year old male admitted with GI bleed, suspected chronic 1. GI bleeding, suspected to be chronic - Effient stopped per direction of [place]/Plowing. - Hold ASA for now - Heme positive stools - Transfuse 2 units PRBCs now. Lasix 20 mg IV in between units. Recheck hgb in am. - Consider outpatient EGD/colonoscopy. - Protonix 40 mg IV BID. - CL diet now. 2. HTN/CAD - Stable, continue Lisinopril. - HOLD ASA - Continue Statin. 3. COPD/emphysema - Continue Inhalers. 4. Autoimmune polymyositis - Hold Prednisone for now. VTE prophylaxis: SCDs Dispo: 1-2 days - Mortality Measure Prognosis:: Good
[2020-01-01] MEDS ORDERED: Furosemide 40 MG/4 ML VIAL IVPUSH ONE ×2 (14:24→19:15)
[2020-01-01] MEDS ORDERED: Alendronate 70 MG Tab PO SCH (14:30)
[2020-01-01] MEDS ORDERED: Iron Sucrose Complex 200 MG in Sodium Chloride 0.9% 100 ML IV ONE ×2 (14:45→15:15)
[2020-01-01] MEDS: Pantoprazole 40 MG in Sodium Chloride 0.9% 10 ML IV SCH (14:59)
[2020-01-01] MEDS ORDERED: Furosemide 20 MG/2 ML VIAL IVPUSH ONE (19:15)
[2020-01-01] MEDS ORDERED: atorvaSTATin 20 MG Tab PO SCH (21:00)
[2020-01-01] MEDS ORDERED: Lisinopril 10 MG Tab PO SCH (21:00)
[2020-01-01] MEDS ORDERED: predniSONE 5 MG Tab PO SCH (21:00)
[2020-01-01] MEDS: Bevespi Aerosphere Inhaler INH SCH (21:12)
[2020-01-02] MEDS: Pantoprazole 40 MG in Sodium Chloride 0.9% 10 ML IV SCH ×2 (02:01→13:59)
[2020-01-02] MEDS: Bevespi Aerosphere Inhaler INH SCH (05:41)
[2020-01-02 07:02] LABS: BLOOD UREA NITROGEN,BUN 20 mg/dL (7.0-18.0); CARBON DIOXIDE,CO2 27.1 mmol/L (21.0-32.0); CHLORIDE,CL 111 mmol/L (98-107); GLUCOSE RANDOM 91 mg/dL (74-106); SODIUM,NA 145 mmol/L (136-148)
[2020-01-02] MEDS ORDERED: Furosemide 40 MG Tab PO SCH (09:00)
[2020-01-02] MEDS ORDERED: SPIRIVA INH SCH (09:00)
[2020-01-02] MEDS ORDERED: Cholecalciferol (Vitamin D3) 10 MCG Tab PO SCH (09:00)
[2020-01-02] MEDS ORDERED: Multivitamin Tab PO SCH (09:00)
[2020-01-02] MEDS ORDERED: Iron Sucrose Complex 200 MG in Sodium Chloride 0.9% 100 ML IV ONE ×2 (11:45→15:00)
[2020-01-02 14:49] VITALS: BP 130/58; PULSE 64
--- NOTE | 2020-01-02 15:28 | PCM.DCSUM1 ---
Discharge Summary - Hospital Course Brief History: This 69 year old male with pmh of CAD with recent stenting in June 2019 on Effient and ASA, GERD, COPD, HTN, HLD, autoimmune polymyositis presented to the clinic today with concerns of shortness of breath and chest pressure when ambulating. Hgb was checked 12/26 and noted to be 9.6 and today recheck was 6.8. He had called his target man in [place] who recommended stopping Effient and continuing with ASA, and to stop ASA 5 days prior to EGD when he is set up to do this. He reports no black or blood BMs. Reports stools are brown in color. No nausea or vomiting, but reports gastritis and heartburn. Sometimes food helps with pain and sometimes it makes it worse. He takes Omeprazole at home nightly, which has helped. He previously was on Meloxicam and Prednisone. Continues on 2.5 mg of Prednisone BID. He also reports Carafate in the past, which caused his pain so this was stopped. In the clinic h/h noted to be 6.8/23.7. Iron 15, Na 144, K+ 4.0, BUN 29 and Cr 1.2. Admission for transfusion recommended. Dr Kaminski was notified of patient , recommended infusion, but would hold of on EGD/colonoscopy currently. Diagnosis: Stroke: No - Discharge Data Discharge Date: 01/02/20 Discharge Disposition: Home, Self-Care 01 Condition: Good - Referral to Home Health Primary Care Physician: Todd Holman MD - Discharge Diagnosis/Problem(s) (1) GI bleed SNOMED Code(s): 81745317 ICD Code: K92.2 - GASTROINTESTINAL HEMORRHAGE, UNSPECIFIED Status: Acute Current Visit: Yes (2) Symptomatic anemia SNOMED Code(s): 761060574 ICD Code: D64.9 - ANEMIA, UNSPECIFIED Status: Acute Current Visit: Yes (3) HTN (hypertension) SNOMED Code(s): 90517285 ICD Code: I10 - ESSENTIAL (PRIMARY) HYPERTENSION Status: Chronic Current Visit: Yes (4) HLD (hyperlipidemia) SNOMED Code(s): 27063657 ICD Code: E78.5 - HYPERLIPIDEMIA, UNSPECIFIED Status: Chronic Current Visit: Yes (5) CAD (coronary artery disease) SNOMED Code(s): 72710066 ICD Code: I25.10 - ATHSCL HEART DISEASE OF [place] CORONARY ARTERY W/O ANG PCTRS Status: Chronic Current Visit: Yes (6) History of coronary artery stent placement SNOMED Code(s): 582649471, 302426164 ICD Code: Z95.5 - PRESENCE OF CORONARY ANGIOPLASTY IMPLANT AND GRAFT Status : Chronic Current Visit: Yes - Patient Summary/Data Hospital Course: Admitting Diagnoses: Symptomatic anemia Chronic GI bleed Discharge Diagnoses: Symptomatic anemia Chronic GI bleed Other PMH CAD S/p PCI Jun 2019 HTN HLD Polymyositis Reed was admitted and treated for suspected chronic GI bleed. 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 This was continued to be held as well. He is to continue ASA 81 mg tomorrow. He was transfused 3 units PRBCs, hgb elevated to 8.5 after 2, given another unit due to mild SOB that continued. He was also given total 400 mg IV iron during his stay. Dr Kaminski was contacted by Dr Holman prior to admission, follow up with general surgery as outpatient for EGD/Colonoscopy. Hemoccult positive, He will have follow up with PCP next week. he was counseled on monitoring stools for black or bloody. If chest pain or shortness of breath returns he is to return to the ED or clinic. He is to stop Effient. Take Omeprazole BID x 1 month. - Patient Instructions Diet: Heart Healthy Diet Activity: As Tolerated, No Strenuous Activities Showering/Bathing: May Shower Notify Provider of: Fever, Increased Pain, Swelling and Redness, Drainage, Nausea and/or Vomiting Other/Special Instructions: Monitor for bleeding, such as black tarry stools or dipika bright red blood in stools. Notify primary care provider right away or come to the ER - Discharge Plan *PRESCRIPTION DRUG MONITORING PROGRAM REVIEWED*: Not Applicable *COPY OF PRESCRIPTION DRUG MONITORING REPORT IN PATIENT KHUSHBOO: Not Applicable Home Medications: Home Meds Cholecalciferol (Vitamin D3) [Vitamin D3] 2,000 mg PO DAILY 05/05/19 [History] predniSONE [Prednisone] 2.5 mg PO BID 05/05/19 [History] Alendronate Sodium 1 tab PO WEEKLY 01/01/20 [History] Aspirin [Adult Low Dose Aspirin EC] 81 mg PO 01/01/20 [History] Furosemide 40 mg PO DAILY 01/01/20 [History] Glycopyrrolate/Formoterol Fum [Bevespi Aerosphere Inhaler] 2 inh IH BID [History] Multivitamin [Multivitamins] 1 tab PO DAILY 01/01/20 [History] Potassium Chloride [Klor-Con M20] 20 meq PO DAILY 01/01/20 [History] Tiotropium [Spiriva Handihaler] 1 inh IH DAILY 01/01/20 [History] atorvaSTATin [Lipitor] 20 mg PO BEDTIME 01/01/20 [History] lisinopriL [Lisinopril] 20 mg PO BEDTIME 01/01/20 [History] Omeprazole 40 mg PO BID #0 01/02/20 [Rx] Oxygen Therapy Mode: Room Air Patient Handouts: Gastrointestinal Bleeding, [id number] Referrals: [facility] [Outside] Todd Holman MD [Primary Care Provider] - 01/10/20 9:00 am - Discharge Summary/Plan Comment DC Time >30 min.: No - Patient Data Vitals - Most Recent: Last Vital Signs Temp 98.4 F 01/02/20 14:45 Pulse 64 01/02/20 14:45 Resp 18 01/02/20 14:45 BP 130/58 L 01/02/20 14:45 Pulse Ox 96 01/02/20 14:45 Weight - Most Recent: 78.154 kg I&O - Last 24 hours: Intake & Output 01/01/20 01/02/20 01/02/20 22:59 06:59 14:59 Intake Total 2031 1240 350 Output Total 960 1950 Balance 1071 -710 350 Lab Results - Last 24 hrs: Laboratory Results - last 24 hr 01/01/20 01/02/20 01/02/20 Range/Units 13:54 06:02 06:02 WBC 8.37 (4.0-11.0) K/uL RBC 3.31 L (4.50-5.90) M/uL Hgb 8.5 L (13.0-17.0) g/dL Hct 28.6 L (38.0-50.0) % MCV 86.4 (80.0-98.0) fL MCH 25.7 L (27.0-32.0) pg MCHC 29.7 L (31.0-37.0) g/dL RDW Std Deviation 71.6 H (28.0-62.0) fl RDW Coeff of Darin 23 H (11.0-15.0) % Plt Count 364 (150-400) K/uL MPV 9.30 (7.40-12.00) fL Neut % (Auto) 66.8 (48.0-80.0) % Lymph % (Auto) 18.9 (16.0-40.0) % Travis % (Auto) 10.6 (0.0-15.0) % Eos % (Auto) 2.6 (0.0-7.0) % Baso % (Auto) 1.1 (0.0-1.5) % Neut # (Auto) 5.6 (1.4-5.7) K/uL Lymph # (Auto) 1.6 (0.6-2.4) K/uL Travis # (Auto) 0.9 H (0.0-0.8) K/uL Eos # (Auto) 0.2 (0.0-0.7) K/uL Baso # (Auto) 0.1 (0.0-0.1) K/uL Nucleated RBC % 0.0 /100WBC Nucleated RBCs # 0 K/uL Sodium 145 (136-148) mmol/L Potassium 4.0 (3.5-5.1) mmol/L Chloride 111 H (98-107) mmol/L Carbon Dioxide 27.1 (21.0-32.0) mmol/L BUN 20 H (7.0-18.0) mg/dL Creatinine 1.0 (0.8-1.3) mg/dL Est Cr Clr Drug Dosing 70.70 mL/min Estimated GFR (MDRD) > 60.0 ml/min Glucose 91 (74-106) mg/dL Calcium 8.3 L (8.5-10.1) mg/dL Blood Type A NEGATIVE Antibody Screen NEGATIVE Crossmatch See Detail PRIMITIVO Results - Last 24 hrs: Microbiology 01/01/20 13:45 Stool Occult Blood (PRIMITIVO) - Final Stool / Feces Med Orders - Current: Current Medications Acetaminophen (Tylenol) 650 mg PO Q4H PRN PRN Reason: Pain (Mild 1-3)/fever Atorvastatin Calcium (Lipitor) 20 mg PO BEDTIME [facility] Last Admin: 01/01/20 21:09 Dose: 20 mg Cholecalciferol (Vitamin D3) 20 mcg PO DAILY [facility] Last Admin: 01/02/20 09:39 Dose: 20 mcg Furosemide (Lasix) 40 mg PO DAILY [facility] Last Admin: 01/02/20 09:39 Dose: 40 mg Pantoprazole Sodium 40 mg/ (Sodium Chloride) 10 mls @ 300 mls/hr IV Q12H [facility] Last Admin: 01/02/20 13:59 Dose: 300 mls/hr Iron Sucrose 200 mg/ Sodium (Chloride) 110 mls @ 400 mls/hr IV ONETIME ONE Stop: 01/02/20 15:16 Last Admin: 01/02/20 14:16 Dose: 400 mls/hr Lisinopril (Prinivil) 20 mg PO BEDTIME [facility] Last Admin: 01/01/20 21:09 Dose: 20 mg Multivitamins/Minerals/Vitamin C (Tab-A-Hollie) 1 tab PO DAILY [facility] Last Admin: 01/02/20 09:39 Dose: 1 tab Ondansetron HCl (Zofran) 4 mg IVPUSH Q4H PRN PRN Reason: Nausea Bevespi Aerosphere (Inhaler) 2 each INH BIDRT [facility] Last Admin: 01/02/20 05:41 Dose: Not Given Spiriva 1 each INH DAILY [facility] Last Admin: 01/02/20 09:40 Dose: Not Given Sodium Chloride (Saline Flush) 2.5 ml FLUSH ASDIRECTED PRN PRN Reason: Keep Vein Open Discontinued Medications Furosemide (Lasix) 20 mg IVPUSH ONETIME ONE Stop: 01/01/20 19:16 Last Admin: 01/01/20 19:42 Dose: 20 mg Iron Sucrose 200 mg/ Sodium (Chloride) 110 mls @ 400 mls/hr IV ONETIME ONE Stop: 01/01/20 15:01 Last Admin: 01/01/20 15:42 Dose: 400 mls/hr Iron Sucrose 200 mg/ Sodium (Chloride) 110 mls @ 400 mls/hr IV ONETIME ONE Stop: 01/01/20 15:31 Last Admin: 01/01/20 15:43 Dose: Not Given Iron Sucrose 200 mg/ Sodium (Chloride) 110 mls @ 400 mls/hr IV ONETIME ONE Stop: 01/02/20 12:01 Last Admin: 01/02/20 13:09 Dose: Not Given Prednisone (Prednisone) 2.5 mg PO BID [facility] - Exam General: Reports: Alert, Oriented Lungs: Reports: Clear to Auscultation, Normal Respiratory Effort Cardiovascular: Reports: Regular Rate, Regular Rhythm GI/Abdominal Exam: Normal Bowel Sounds, Soft, Non-Tender Extremities: Normal Inspection, Normal Range of Motion, Non-Tender, No Pedal Edema Neurological: Reports: No New Focal Deficit Psy/Mental Status: Reports: Alert, Normal Affect, Normal Mood
== END 2020-01-02 15:25 | disposition home or self-care (01) ==
LOC: MW.MS 12:11
PROVIDERS: ADMIT Internal Medicine; ATTEND Internal Medicine
DX: K92.2 Gastrointestinal hemorrhage, unspecified (principal); D50.0 Iron deficiency anemia secondary to blood loss (chronic); I10 Essential (primary) hypertension; E78.5 Hyperlipidemia, unspecified; I25.10 Atherosclerotic heart disease of native coronary artery without angina pectoris; M33.20 Polymyositis, organ involvement unspecified; J43.9 Emphysema, unspecified; K21.9 Gastro-esophageal reflux disease without esophagitis; Z79.82 Long term (current) use of aspirin; Z79.899 Other long term (current) drug therapy; Z95.5 Presence of coronary angioplasty implant and graft; Z88.8 Allergy status to other drugs, medicaments and biological substances; Z87.891 Personal history of nicotine dependence
CPT/HCPCS: 36415; 36430; 80048; 82272; 85025; 86850; 86900; 86901; 86920; 86921; 86922; 96365; 96375; 96376; A9270-GY; C9113; G0378; J1756; J7050; P9016

== ENCOUNTER 2020-03-07 07:47 | Day surgery (SDC) | payer BC ==
[~2020-03-07 07:47] MED LIST: Midazolam 1 MG/ML 2 ML SDV ONE; Propofol 200 MG/20 ML SDV ONE
[2020-03-07] MEDS ORDERED: Lactated Ringers 1,000 ML IV SCH ×2 (08:00→09:45)
--- NOTE | 2020-03-07 08:15 | PCM.PREANE ---
Preanesthetic Assessment - Anesthesia/Transfusion/Family Hx Anesthesia History: Prior Anesthesia Without Reaction Other Type of Anesthesia Reaction Comment: PT STATES HIS FATHER HAD PROBLEMS WITH IRREGULAR HR POST ANESTHESIA Family History of Anesthesia Reaction: No Transfusion History: Prior Transfusion Without Reaction - Review of Systems General: No Symptoms Pulmonary: No Symptoms Cardiovascular: No Symptoms Gastrointestinal: No Symptoms Neurological: No Symptoms Other: Reports: None - Physical Assessment NPO Status Date: 03/06/20 Height: 5 ft 9 in Weight: 81.647 kg ASA Class: 3 Mental Status: Alert & Oriented x3 Airway Class: Mallampati = 2 Dentition: Reports: Broken Tooth/Teeth, Missing Tooth/Teeth ROM/Head Extension: Full Lungs: Clear to Auscultation, Normal Respiratory Effort Cardiovascular: Regular Rate, Regular Rhythm - Allergies Allergies/Adverse Reactions: Allergies Allergy/AdvReac Type Severity Reaction Status Date / Time povidone-iodine Allergy Rash Verified 01/01/20 13:29 [From Betadine] soap [From Betadine] Allergy Rash Verified 01/01/20 13:29 - Blood Blood Available: No - Anesthesia Plan Pre-Op Medication Ordered: None - Acknowledgements Anesthesia Type Planned: General Anesthesia (tiva) Pt an Appropriate Candidate for the Planned Anesthesia: Yes Alternatives and Risks of Anesthesia Discussed w Pt/Guardian: Yes Pt/Guardian Understands and Agrees with Anesthesia Plan: Yes Additional Comments: PMH: CAD, s/p coronary stent Jun 2019 (8 mo), hx GI bleed- 12/31, effient and ASA stopped at that time, BPH, COPD, GERD/PUD, HTN, polymyoaitia- on daily prednisone PLAN: tiva PreAnesthesia Questionnaire HEENT History: Reports: Allergic Rhinitis Other HEENT History: has upper denture and lower removable partial Cardiovascular History: Reports: High Cholesterol, Hypertension, Stents Respiratory History: Reports: COPD Other Respiratory History: "mild" COPD, does not use daily or rescue inhalers Gastrointestinal History: Reports: GERD, Hiatal Hernia, Other (See Below) Other Gastrointestinal History: hx of bleeding duodenol ulcer Genitourinary History: Reports: BPH, Renal Calculus Other Genitourinary History: passed 1 stone 1 year ago Musculoskeletal History: Reports: Fracture, Osteoarthritis Other Musculoskeletal History: hx of fx arm, leg and foot Neurological History: Reports: Other (See Below) Other Neuro History: hx of being seasick Psychiatric History: Reports: None Endocrine/Metabolic History: Reports: None, Other (See Below). Denies: Diabetes , Type II Hematologic History: Reports: Anemia, Blood Transfusion(s) Other Hematologic History: hx of iron infusions Immunologic History: Reports: Immunosuppression - Infectious Disease History Infectious Disease History: Reports: Chicken Pox, Measles, Mumps - Past Surgical History Head Surgeries/Procedures: Reports: None HEENT Surgical History: Reports: Other (See Below) Other HEENT Surgeries/Procedures: 1. dental implant Cardiovascular Surgical History: Reports: Coronary Artery Stent Other Cardiovascular Surgeries/Procedures: Angioplasty with 1 stent inserted GI Surgical History: Reports: Colonoscopy, EGD, Hernia, Inguinal - SUBSTANCE USE Smoking Status *Q: Former Smoker Tobacco Use Within Last Twelve Months: No Recreational Drug Use History: No - HOME MEDS Home Medications: Home Meds Cholecalciferol (Vitamin D3) [Vitamin D3] 2,000 mg PO DAILY 05/05/19 [History] predniSONE [Prednisone] 2.5 mg PO BID 05/05/19 [History] Alendronate Sodium 70 mg PO WEEKLY 01/01/20 [History] Glycopyrrolate/Formoterol Fum [Bevespi Aerosphere Inhaler] 2 inh IH BID [History] atorvaSTATin [Lipitor] 20 mg PO BEDTIME 01/01/20 [History] lisinopriL [Lisinopril] 20 mg PO BEDTIME 01/01/20 [History] Albuterol [Ventolin HFA] 2 puff INH Q4H PRN 03/03/20 [History] Carlie T Sap 2 cap PO DAILY 03/03/20 [History] Omeprazole 40 mg PO DAILY 03/03/20 [History] Ultrainflamx 3 tbsp PO BID 03/03/20 [History] - CURRENT (IN HOUSE) MEDS Current Meds: Current Medications Lactated Ringer's (Ringers, Lactated) 1,000 mls @ 125 mls/hr IV ASDIRECTED [facility] Discontinued Medications Midazolam HCl (Versed 1 Mg/Ml) Confirm Administered Dose 2 mg .ROUTE .STK-MED ONE Stop: 03/07/20 07:33 Propofol (Diprivan 20 Ml) Confirm Administered Dose 400 mg .ROUTE .STK-MED ONE Stop: 03/07/20 07:33
--- NOTE | 2020-03-07 09:43 | PCM.OPNOTE ---
- General Post-Op/Procedure Note Date of Surgery/Procedure: 03/07/20 Operative Procedure(s): Colonoscopy with cold sigmoid colon and rectal polypectomies Pre Op Diagnosis: Personal history of colon polyps. Post-Op Diagnosis: Sigmoid and rectal polyps. Sigmoid diverticulosis. Anesthesia Technique: MAC (ASA II) Primary Surgeon: Marcello Kaminski Fluid Replacement, Intraop: 700 Condition: Good Free Text/Narrative:: DICTATION [id number] CPT CODE 93171
--- NOTE | 2020-03-07 09:58 | PCM.POSTAN ---
POST ANESTHESIA ASSESSMENT - MENTAL STATUS Mental Status: Alert, Oriented - VITAL SIGNS Vital Signs: Last Vital Signs Temp 36.4 C 03/07/20 08:05 Pulse 66 03/07/20 09:51 Resp 14 03/07/20 09:51 BP 106/49 L 03/07/20 09:51 Pulse Ox 100 03/07/20 09:51 - RESPIRATORY Respiratory Status: Respiratory Rate WNL, Airway Patent, O2 Saturation Stable - CARDIOVASCULAR CV Status: Pulse Rate WNL, Blood Pressure Stable - GASTROINTESTINAL GI Status: No Symptoms - POST OP HYDRATION Hydration Status: Adequate & Stable (meets phast II PAR discharge criteria)
--- NOTE | 2020-03-07 10:22 | PCM48HPAN ---
Post Anesthesia Note - EVALUATION WITHIN 48HRS OF ANESTHETIC Vital Signs in Normal Range: Yes Patient Participated in Evaluation: Yes Respiratory Function Stable: Yes Airway Patent: Yes Cardiovascular Function Stable: Yes Hydration Status Stable: Yes Pain Control Satisfactory: Yes Nausea and Vomiting Control Satisfactory: Yes Mental Status Recovered: Yes Vital Signs: Last Vital Signs Temp 36.4 C 03/07/20 08:05 Pulse 66 03/07/20 09:51 Resp 14 03/07/20 09:51 BP 106/49 L 03/07/20 09:51 Pulse Ox 100 03/07/20 09:51 - COMMENTS/OBSERVATIONS Free Text/Narrative:: Doing well. Ready for discharge.
[2020-03-07 10:46] VITALS: BP 133/79; PULSE 57
--- NOTE | 2020-03-07 12:41 | OR ---
SURGEON: Marcello Kaminski M.D. DATE OF PROCEDURE: 03/07/2020 OPERATION PERFORMED: Colonoscopy with cold sigmoid colon and rectal polypectomies. PRIMARY SURGEON: Marcello Kaminski MD ANESTHESIA: MAC. ASA CLASSIFICATION: II. PREOPERATIVE DIAGNOSES: 1. Personal history of colon polyps. 2. Desire for colorectal cancer screening. POSTOPERATIVE DIAGNOSES: 1. Sigmoid polyp. 2. Rectal polyp. 3. Sigmoid diverticulosis. DESCRIPTION OF PROCEDURE: The patient was taken to the endoscopy room and positioned on the endoscopy table in the left lateral decubitus position. Time-out was called for appropriate identification of the patient and procedure. Monitored anesthesia care was provided. The colonoscope was inserted into the rectum and advanced with minimal difficulty to the cecum where the colonoscope was retroflexed to visualize the anal orifice from above. Again, no tumors or polyps were seen in the cecum. The colonoscope was straightened and slowly withdrawn. The cecum, ascending colon, hepatic flexure, transverse colon, splenic flexure, and descending colon showed no tumors, polyps, diverticula, or angiodysplastic changes. Sigmoid colon demonstrated a few scattered diverticula. No stricture, spasm, or bleeding was noted. One small polyp was encountered in the distal sigmoid colon and removed with the cold biopsy forceps. A second polyp was encountered in the rectum and also removed with the cold biopsy forceps and sent for separate histologic analysis. The colonoscope was retroflexed to visualize the anal orifice from above. No tumors or polyps were seen distally and there were no acute hemorrhoidal changes. The colonoscope was then straightened, the rectum aspirated, and the colonoscope removed. The patient tolerated the procedure well and was taken to recovery room in stable condition. LISA / HOA /[id number]
== END 2020-03-07 10:37 | disposition home or self-care (01) ==
LOC: MW.SDS 07:47
PROVIDERS: ATTEND Surgery
DX: Z12.11 Encounter for screening for malignant neoplasm of colon (principal); D12.5 Benign neoplasm of sigmoid colon; K62.1 Rectal polyp; K57.30 Diverticulosis of large intestine without perforation or abscess without bleeding; D50.9 Iron deficiency anemia, unspecified; K21.9 Gastro-esophageal reflux disease without esophagitis; I10 Essential (primary) hypertension; J44.9 Chronic obstructive pulmonary disease, unspecified; E78.00 Pure hypercholesterolemia, unspecified; M19.90 Unspecified osteoarthritis, unspecified site; N40.0 Benign prostatic hyperplasia without lower urinary tract symptoms; K26.9 Duodenal ulcer, unspecified as acute or chronic, without hemorrhage or perforation; Z88.8 Allergy status to other drugs, medicaments and biological substances; Z79.899 Other long term (current) drug therapy; Z87.891 Personal history of nicotine dependence; Z98.890 Other specified postprocedural states; Z86.010 Personal history of colon polyps
CPT/HCPCS: 45380; J2250; J2704; J7120